=== PATIENT | male | born 1990 | race Caucasian/White ===

== ENCOUNTER 2018-09-07 11:21 | Day surgery (SDC) | payer OTHER ==
[~2018-09-07 11:21] MED LIST: CEFAZOLIN 2 GM/D5W RTU 2 GM/50 ML RTUPB IV PRN
[2018-09-07] MEDS ORDERED: CEFAZOLIN 2 GM/D5W RTU 2 GM/50 ML RTUPB IV ONE (13:47)
[2018-09-07] MEDS ORDERED: BUPIVACAINE HCL 0.5 % INJ/PF 30 ML SDV ONE (14:33)
[2018-09-07] MEDS ORDERED: MIDAZOLAM 2 MG/2 ML INJ ONE (14:35)
[2018-09-07] MEDS ORDERED: FENTANYL CITRATE INJ/PF 100 MCG/2 ML AMPUL ONE ×2 (14:35→15:44)
[2018-09-07] MEDS ORDERED: KETOROLAC TROMETHAMINE 60 MG/2 ML SDV ONE (14:35)
[2018-09-07] MEDS ORDERED: DEXAMETHASONE SOD PHOSPHATE INJ 4 MG/1 ML VIAL ONE (14:36)
[2018-09-07] MEDS ORDERED: ONDANSETRON HCL INJ/PF 4 MG/2 ML SDV ONE ×2 (14:36→17:59)
[2018-09-07] MEDS ORDERED: MORPHINE SULFATE 10 MG/ML INJ ONE (14:36)
[2018-09-07] MEDS ORDERED: PROPOFOL INJ 200 MG/20 ML VIAL IV ONE (14:37)
[2018-09-07] MEDS ORDERED: FENTANYL CITRATE INJ/PF 100 MCG/2 ML AMPUL IV PRN ×3 (15:42)
[2018-09-07] MEDS ORDERED: MORPHINE SULFATE 10 MG/ML INJ IV PRN ×3 (15:42→17:35)
[2018-09-07] MEDS ORDERED: PROMETHAZINE HCL INJ 25 MG/1 ML VIAL IV PRN (15:42)
[2018-09-07] MEDS ORDERED: MEPERIDINE HCL/PF INJ 25 MG/1 ML DISP.SYRIN IV PRN (15:42)
[2018-09-07] MEDS ORDERED: ONDANSETRON HCL INJ/PF 4 MG/2 ML SDV IV PRN ×2 (17:21→17:35)
[2018-09-07] MEDS ORDERED: OXYCODONE-ACETAMINOPHEN 5-325 MG TABLET PO PRN ×2 (17:21→17:35)
[2018-09-07] MEDS ORDERED: ROPIVACAINE HCL 0.5% INJ/PF (5 MG/1 ML) 30 ML SDV ONE (17:22)
--- NOTE | 2018-09-07 17:22 | Discharge Summary ---
Discharge Summary (SDC) - Discharge Final Diagnosis: Left Intra-articular Distal Radius Fracture Date of Surgery: 09/07/18 Discharge Date: 09/07/18 Condition: Good Treatment or Instructions: Schedule Follow Up w/ Dr. Vamsi Wang @ [facility] to be seen in 10-14 days or as scheduled [place]: [place]: [place]: Ice and elevate Keep splint clean/dry/intact. If your fingers become numb please unwrap the Tavon wrap but leave the splint in place, if the sensation does not return within 30 minutes please return to the emergency department. May begin finger range of motion attempting to make full fist. Please use ibuprofen (Motrin or Advil) 600-800 mg every 8 hours as needed for pain or fever DO NOT TAKE w/ TORADOL may use once TORADOL complete. You may also use acetaminophen (Tylenol) 1000 mg every 4-6 hours as needed for pain or fever. Please be aware that many medications contain acetaminophen, do not exceed a total of 1000 mg of acetaminophen every 6 hours. If ibuprofen and acetaminophen are not sufficient for your pain you may take the Percocet/Cos Cob. Please be aware that the Percocet/Cos Cob does contain Tylenol. Stool softener of choice when on pain medication. Prescriptions: Ketorolac Tromethamine [Toradol 10 mg Tablet] 10 mg PO Q8HP PRN #12 tablet PRN Reason: Oxycodone HCl/Acetaminophen [Percocet 7.5-325 mg Tablet] 1 - 2 tab PO Q6 #25 tab Discharge Diet: As Tolerated Respiratory Treatments at Home: Deep Breathing/Coughing Discharge Activity: No Lifting Over 10 Pounds, No Lifting/Push/Pulling Report the Following to Your Physician Immediately: Fever over 101 Degrees, Unusual Bleeding, Redness, Swelling, Warmth
[2018-09-07] MEDS ORDERED: LIDOCAINE 2%/EPINEPHRINE INJ 20 ML VIAL ONE (17:23)
[2018-09-07] MEDS ORDERED: LIDOCAINE 2% INJ-PF (20 MG/ML) 10 ML AMPUL ONE (17:24)
--- NOTE | 2018-09-07 17:35 | Operative Report ---
Operative Report PREOPERATIVE DIAGNOSIS: Left >3 Part Intra-articular Distal Radius Fracture POSTOPERATIVE DIAGNOSIS: Same OPERATION: ORIF >3 Intra-articular Distal Radius Fracture SURGEON: BIANCA MÉNDEZ ANESTHESIA: GA COMPLICATIONS: None ESTIMATED BLOOD LOSS: Minimal PROCEDURE: Indication for the procedure: 27-year-old male sustained a fall while playing flag football deployed in [place] back home for definitive treatment. CT and radiographs demonstrated intra- articular distal radius fracture unfortunately given to lack of availability he was sent back for operative treatment. He was then seen in the office at which point we reviewed CT scan and treatment options. After discussing risks and benefits joint decision was made to proceed with operative intervention. Procedure In Detail: Patient was seen and evaluated in the preoperative holding area. THE left upper extremity was initialized and marked. Patient received 2g of Ancef IV for bacterial prophylaxis. Patient was taken back to the operative room where transferred to the operative table and placed under general anesthesia. Once they were adequately anesthetized a nonsterile tourniquet was placed on the upper extremity. A surgical team debriefing was performed ensuring all instrumentation was available, the surgical procedure was discussed with possible concerns reviewed. The upper extremity was prepped with chlorhexidine and alcohol and draped in a sterile fashion. A timeout was done identifying correct patient, procedure and extremity everyone in attendance agree with this and verbalized no concerns. The extremity was exsanguinated the tourniquet was inflated to 250 mmHg. Longitudinal skin incision was made just ulnar to Grisel's tubercle. Blunt dissection was performed. Branch of the superficial radial nerve were identified and retracted. Any small peripheral veins were isolated and coagulated with bipolar cautery. The third dorsal compartment was then opened and EPL tendon transposed in a radial direction. The interval between the second and third dorsal compartments was elevated radially and ulnarly respectively. A small portion of the periosteum dorsally was elevated with Grisel's tubercle to allow coverage of the plate. The distal radius was then adequately exposed. Radial capsulotomy was made to inspect fracture. The dorsal fragment was booked open to expose the articular surface. Under direct visualization the punch fragment was elevated. The dorsal fragment was then closed and impacted in position. A 0.054 K wire was placed maintaining reduction. C-arm fluoroscopy was obtained confirming adequate reduction. The Acumed dorsal distal radius plate was then secured into position and K wire. C-arm fluoroscopy was obtained confirming adequate placement of the plate on AP and lateral projection. Under direct visualization of the articular surface there was no evidence of intra-articular K wire encroachment. The plate was then secured proximally through the dynamic hole with bicortical fixation. C-arm fluoroscopy was once again obtained confirming adequate placement. The distal screw holes were drilled to but not through the far cortex. The appropriate sized locking screws were placed providing fixation and rafting the articular surface. The previous K wire was then removed. There is no crepitus with wrist range of motion. The proximal screw holes were then drilled and 2 bicortical screws placed. Final C-arm fluoroscopy was obtained confirming confucianist of the articular surface, radial height, inclination and volar tilt. No evidence of intra- articular screw penetration not only on C-arm but on direct visualization. No crepitus with range of motion. There was negative Mai's test however the was DRUJ instability noted thus a 0.045 K wire was drilled on oscillate from the radius to the distal ulna while maintaining reduction. Wound was copiously irrigated with normal saline. Capsulotomy was closed with interrupted 3-0 Vicryl suture. Extensor retinaculum was closed leaving the EPL transposed with interrupted 3-0 Vicryl suture. Tourniquet was deflated. Any peripheral bleeding was controlled with bipolar cautery into the wound was dry. Subcutaneous tissues closed with interrupted 4-0 Monocryl suture. Skin was closed with running horizontal mattress 3-0 nylon suture. The 0.054 K wire was then cut and bent left out of the skin. Wound was dressed with Xeroform 4 x 4' s and patient was placed in a 4 inch volar and dorsal splint. Sponge counts, instrument counts, needle counts counts were correct. Patient was then awoken from anesthesia. Transferred from the operating room table to the operating room stretcher. There was no intraoperative complications patient tolerated procedure well stable to PACU. Postoperative plan: Patient will follow-up the office in 2 weeks at which point we will obtain radiographs. Patient will be transitioned to a short arm cast.
[2018-09-07] MEDS ORDERED: PROMETHAZINE HCL INJ 25 MG/1 ML VIAL ONE (17:40)
[2018-09-07 20:17] VITALS: BP 151/81
--- NOTE | 2018-09-08 11:58 | RADIOLOGY REPORT (SQ) ---
EXAM DESCRIPTION: NO CHG FLUORO; WRIST LEFT 3 VIEWS COMPLETED DATE/TIME: 09/07/2018 9:15 pm REASON FOR STUDY: ORIF LEFT RADIUS S52.572A OTH INTARTIC FRACTURE OF LOWER END OF LEFT RADIUS, COMPARISON: None. FLUOROSCOPY TIME: 10 minutes 4 seconds 5 images saved to PACS. TECHNIQUE: Intra-operative images acquired during surgical procedure to evaluate progress. NUMBER OF IMAGES: 5 LIMITATIONS: None. FINDINGS: Reduction internal fixation of distal radial fracture. IMPRESSION: IMAGE(S) OBTAINED DURING PROCEDURE. COMMENT: Quality ID 145: Final reports for procedures using fluoroscopy that document radiation exp osure indices, or exposure time and number of fluorographic images (if radiation exposure indices are not available) Please consult full operative report of the attending physician for description of the procedure. TECHNICAL DOCUMENTATION: JOB ID: [id number] [facility]- All Rights Reserved Reading location - IP/workstation name: [email or web address]
--- NOTE | 2018-09-08 11:58 | RADIOLOGY REPORT (SQ) ---
EXAM DESCRIPTION: NO CHG FLUORO; WRIST LEFT 3 VIEWS COMPLETED DATE/TIME: 09/07/2018 9:15 pm REASON FOR STUDY: ORIF LEFT RADIUS S52.572A OTH INTARTIC FRACTURE OF LOWER END OF LEFT RADIUS, COMPARISON: None. FLUOROSCOPY TIME: 10 minutes 4 seconds 5 images saved to PACS. TECHNIQUE: Intra-operative images acquired during surgical procedure to evaluate progress. NUMBER OF IMAGES: 5 LIMITATIONS: None. FINDINGS: Reduction internal fixation of distal radial fracture. IMPRESSION: IMAGE(S) OBTAINED DURING PROCEDURE. COMMENT: Quality ID [id number]: Final reports for procedures using fluoroscopy that document radiation exp osure indices, or exposure time and number of fluorographic images (if radiation exposure indices are not available) Please consult full operative report of the attending physician for description of the procedure. TECHNICAL DOCUMENTATION: JOB ID: [id number] [employer]- All Rights Reserved Reading location - IP/workstation name: [email or web address]
== END 2018-09-07 19:40 | disposition home or self-care (01) ==
LOC: OROUT 11:21
PROVIDERS: ATTEND Orthopaedic Surgery
DX: S52.572A Other intraarticular fracture of lower end of left radius, initial encounter for closed fracture (principal); W19.XXXA Unspecified fall, initial encounter; Y93.62 Activity, american flag or touch football; Y99.8 Other external cause status; Z01.818 Encounter for other preprocedural examination
CPT/HCPCS: 73110; 25609; C1713 ×7; C1769; J2795; J2250; J3490 ×3; J1100; J1885; J3010; J2270; J2550; J2405; J2704; J0690; 01830